=== PATIENT | male | born 1985 | race Caucasian/White ===

== ENCOUNTER 2017-05-18 08:43 | Emergency (ER) | payer MEDICAID, OTHER ==
[~2017-05-18] VITALS: Ht 182.9 cm; Wt 81.6 kg
--- NOTE | 2017-05-18 08:55 | NUR ---
PRESENTS TO ER C/O SOB x 5 DAYS. STATING ITS DIFFICULT TO BREATH. PATIENT IS A/OX 4. BREATHING EVEN AND UNLABORED. PATIENT REMAINS CALM, NO SOB WITNESSED. VITALS STABLE, NAD. SAFETY AND COMFORT MEASURES IN PLACE. AWAITING MD ORDERS.
[2017-05-18 10:24] VITALS: BP 121/76
--- NOTE | 2017-05-18 10:25 | NUR ---
Patient discharged to home in stable condition. Written and verbal after care instructions given. Patient verbalizes understanding of instruction.
== END 2017-05-18 10:25 | disposition home or self-care (01) ==
LOC: ER 08:46
DX: R06.02 Shortness of breath (principal)
CPT/HCPCS: 36415; 71045-TC; 85378-TC; A4606; Z7610